=== PATIENT | female | born 1950 | race Caucasian/White ===

== ENCOUNTER → 2018-12-14 | Outpatient (CLI) | payer MEDICARE, OTHER ==
[~2018-12-14] MED LIST: ATOR10; BUPR150ER; CETI10; CHOL10002; CITA20 PO; CYCL10 PO; DOXY100 PO; DULO60 PO; ESOM20; FEXO180; FLAX PO; GABA300 PO; HCTZ PO; HYDACE5 PO; LISHYD1012 PO; LISINOPRIL PO; OMEP20ER; OMEP20ER PO; OXYC5 PO; RXCYCL10 PO; SERT100; SIMV40 PO; TRAZ100; TRAZ150T57 PO; TRIA55OI; VERA180ERB; VITAMIN B122500 MCG PO; VITAMIN D PO; VITAMIN D5000 UNIT PO
[2018-12-17 13:06] LABS: HPV 16 Negative (Negative); HPV 18 Negative (Negative); HPV OTHER HR TYPES Negative (Negative)
== END | disposition home or self-care (01) ==
LOC: LAB SHORT 09:58 → LAB 09:58
PROVIDERS: Nurse Practitioner Obstetrics & Gynecology
DX: Z01.419 Encounter for gynecological examination (general) (routine) without abnormal findings (principal)
CPT/HCPCS: 87624; G0123

== ENCOUNTER 2021-10-30 08:01 | Day surgery (SDC) | payer MEDICARE, OTHER ==
[~2021-10-30] VITALS: Ht 160 cm; Wt 66.1 kg
[~2021-10-30 08:01] MED LIST changes: +ALLEGRA ALLERG180 MG PO; +BUPR150ER PO; +SERT100 PO; +TRAZ100 PO
[2021-10-30] MEDS ORDERED: ALEN70 PO (08:25)
[2021-10-30] MEDS ORDERED: BUSP5 PO (08:25)
[2021-10-30] MEDS ORDERED: OXYB5 PO (08:26)
[2021-10-30] MEDS ORDERED: OMEP20ER PO (08:26)
[2021-10-30] MEDS ORDERED: Cymbalta60 MG PO (08:27)
--- NOTE | 2021-10-30 08:30 | NUR ---
10/30/21 0830 ALCIDES RANDLE @0823 NILSON @0850
== END 2021-10-30 10:12 | disposition home or self-care (01) ==
LOC: ORSCSDS 08:01
PROVIDERS: Ophthalmology
PROC: 08RJ3JZ Replacement of Right Lens with Synthetic Substitute, Percutaneous Approach (ICD-10-PCS; principal; 2021-10-30 09:30)
DX: H25.13 Age-related nuclear cataract, bilateral (principal); K21.9 Gastro-esophageal reflux disease without esophagitis; I10 Essential (primary) hypertension; G47.33 Obstructive sleep apnea (adult) (pediatric); Z79.899 Other long term (current) drug therapy
CPT/HCPCS: J2001; J2250; J3010; J3301; J7040; V2632

== ENCOUNTER 2021-12-18 08:11 | Day surgery (SDC) | payer MEDICARE, OTHER ==
[~2021-12-18] VITALS: Ht 160 cm; Wt 66.2 kg
[~2021-12-18 08:11] MED LIST changes: +ALEN70 PO; +BUSP5 PO; +Cymbalta60 MG PO; +OXYB5 PO
--- NOTE | 2021-12-18 08:56 | NUR ---
12/18/21 0856 Nay Peck AT 0846 PLEDGET AT 0848
--- NOTE | 2021-12-18 10:27 | NUR ---
12/18/21 1027 ADAN GRUBER PT WAITING ON TO COME BACK FROM [place]
== END 2021-12-18 10:27 | disposition home or self-care (01) ==
LOC: ORSCSDS 08:11
PROVIDERS: Ophthalmology
PROC: 08RK3JZ Replacement of Left Lens with Synthetic Substitute, Percutaneous Approach (ICD-10-PCS; principal; 2021-12-18 09:30)
DX: H25.12 Age-related nuclear cataract, left eye (principal); K21.9 Gastro-esophageal reflux disease without esophagitis; I10 Essential (primary) hypertension; G47.33 Obstructive sleep apnea (adult) (pediatric); Z79.899 Other long term (current) drug therapy
CPT/HCPCS: J2001; J2250; J3010; J7040; V2632

== ENCOUNTER 2023-05-06 08:33 | Day surgery (SDC) | payer MEDICARE ==
[~2023-05-06] VITALS: Ht 160 cm; Wt 64.2 kg
[2023-05-06] MEDS ORDERED: Flonase 0.05% N16 GM (08:57)
[2023-05-06] MEDS ORDERED: MYRBETRIQ25 MG (08:57)
[2023-05-06] MEDS ORDERED: METR59TL (08:57)
[2023-05-06 10:38] VITALS: BP 103/75
== END 2023-05-06 10:51 | disposition home or self-care (01) ==
LOC: ORSCSDS 08:33
PROVIDERS: Internal Medicine Gastroenterology
PROC: 0DBN8ZX Excision of Sigmoid Colon, Via Natural or Artificial Opening Endoscopic, Diagnostic (ICD-10-PCS; principal; 2023-05-06 09:45)
PROC: 0DBC8ZX Excision of Ileocecal Valve, Via Natural or Artificial Opening Endoscopic, Diagnostic (ICD-10-PCS; principal; 2023-05-06 09:45)
DX: Z12.11 Encounter for screening for malignant neoplasm of colon (principal); D12.0 Benign neoplasm of cecum; D12.5 Benign neoplasm of sigmoid colon; K57.30 Diverticulosis of large intestine without perforation or abscess without bleeding; Z79.899 Other long term (current) drug therapy
CPT/HCPCS: 88305; J1980; J2704; J7120

== ENCOUNTER → 2025-03-20 | Outpatient (CLI) | payer MEDICARE ==
[~2025-03-20] MED LIST changes: +Flonase 0.05% N16 GM; +METR59TL; +MYRBETRIQ25 MG
[2025-03-20 10:36] LABS: Alanine Aminotransfer (ALT/SGP 28.0 U/L (12-78); Albumin, Blood 3.6 g/dL (3.4-5.0); Albumin/Globulin Ratio 1.0 (0.8-1.8); Anion Gap 11.0 mmol/L (3-11); Aspartate Aminotrans (AST/SGOT 26.0 U/L (12-37); Bilirubin, Total 0.5 mg/dL (0.1-1.0); Blood Urea Nitrogen 7.0 mg/dL (8-24); CO2, Blood 31.0 mmol/L (21-32); Calcium, Blood 9.9 mg/dL (8.5-10.1); Chloride, Blood 105.0 mmol/L (98-108); Creatinine, Blood 0.82 mg/dL (0.40-1.00); Globulin, Blood 3.6 g/dL (2.2-4.0); Glucose, Blood 99.0 mg/dL (70-99); Potassium, Blood 4.0 mmol/L (3.5-5.5); Sodium, Blood 143.0 mmol/L (136-145); Total Protein, Blood 7.2 g/dL (6.4-8.2)
== END ==
LOC: LAB 10:07 → LAB SHORT 10:07
PROVIDERS: Physician Assistant
DX: N18.31 Chronic kidney disease, stage 3a (principal)
CPT/HCPCS: 36415; 80053

== ENCOUNTER → 2025-04-04 | Outpatient (CLI) | payer MEDICARE ==
[2025-04-04 13:42] LABS: Source, Urine Clean Catch
[2025-04-04 16:15] LABS: Bilirubin, Urine Neg (Neg); Color, Urine Yellow (P-Yellow); Glucose Qualitative, Urine Neg (Neg); Ketones, Urine Neg (Neg); Leukocyte Esterase, Urine Neg (Neg); Protein, Urine Neg (Neg); Specific Gravity, Urine 1.010 (1.003-1.022); Urobilinogen, Urine NORM (Normal)
== END ==
LOC: LAB SHORT 13:39 → LAB 13:39
PROVIDERS: Obstetrics & Gynecology
DX: N39.41 Urge incontinence (principal)
CPT/HCPCS: 81003